=== PATIENT | female | born 1990 | race Caucasian/White ===

== ENCOUNTER 2025-07-03 20:30 | Emergency (ER) | payer OTHER, SELFPAY ==
[2025-07-03 20:33] VITALS: BP 161/106; PULSE 130; RESP 18; TEMP 36.8; O2SAT 100
[2025-07-03 21:04] LABS: Hematocrit 34.4 % (37.0-47.0); Hemoglobin 9.8 g/dL (12.0-15.0); Immature Granulocyte Percent A 0.5 % (0-0.5); Lymphocytes Absolute Auto 3.15 K/mm3 (0.9-3.2); Mean Corpuscular HGB Conc 28.5 g/dl (32-36); Mean Corpuscular Hemoglobin 20.3 pg (26-34); Mean Corpuscular Volume 71.4 fl (80-100); Nucleated Red Blood Cells Absolute Auto 0.000 K/mm3 (0.0-0.012); Nucleated Red Blood Cells Perc 0.0 % (0.0-0.2); Platelet Count Result 705 k/mm3 (150-375); Red Blood Count 4.82 M/mm3 (4.2-5.4); White Blood Count 19.4 K/mm3 (4.5-10.0)
--- NOTE | 2025-07-03 21:10 | ED_ITS ---
HPI - Female Genitourinary General Chief complaint: Vaginal Bleeding Stated complaint: excessive vaginal bleeding x 6 days Time Seen by Provider: 07/03/25 20:48 Source: patient and family Mode of arrival: ambulatory Limitations: no limitations History of Present Illness HPI Narrative: This is a 34-year-old female with history of iron deficiency anemia who presents the ED for vaginal bleeding. Patient states that she was recently started on a new control earlier this month for irregular periods and for the last 6 days, she has been having a period that is heavier than normal. She has been soaking through a tampon an hour every day. She has had intermittent lightheadedness. Denies chest pain, shortness of breath. Significant other at bedside states that she appears to have her regular complexion. She has an appointment on with the agricultural and forestry supervisor. Related Data Home Medications ?Medication ?Instructions ?Recorded ?Confirmed ?Last Taken ?Type albuterol 90 mcg/actuation aerosol mcg inhalation 03/1106/13/25 Unknown History inhaler cetirizine 10 mg tablet (Zyrtec) 10 mg PO DAILY PRN 06/13/25 Unknown History Allergies Allergy/AdvReac Type Severity Reaction Status Date / Time clindamycin Allergy Intermediate Hives Verified 07/03/25 20:35 Review of Systems 2 Review of Systems: Gen.: Denies fevers or chills Eyes: Denies eye pain or visual change ENT: Denies congestion Respiratory: Denies shortness of breath or cough CV: Denies chest pain or palpitations GI: Denies abdominal pain nausea, emesis or diarrhea as per HPI Musculoskeletal: Denies back pain or muscle pain Neuro: Denies numbness, tingling, weakness or focal weakness Skin: Denies rash Except as documented, all other systems reviewed and negative [facility] Past Medical History Medical History Ocular migraine Allergies Asthma Family History Family History Father Hypertension Acute myocardial infarction CAD with CABG Heart disease Obstructive sleep apnea Social History Social History Smoking status: Never smoker Second hand tobacco smoke exposure: Yes Alcohol intake: current Alcohol use details: occasionally; 5 drinks/months Substance use: never Do You Feel Safe in your Home?: No Lack of Transportation: No Lack of Food: Never True Current Housing: I Have Housing Concerned About Future Housing: No Difficulty Paying Gas/Electric Bills: No Difficulty Paying for Meds: No Currently Unemployed: No Difficulty w/ Childcare or Family Care: Decline to Answer Occupation/Education: occupation Agree to blood products: No Exam 2 Narrative: APPEARANCE: Mildly anxious, nontoxic, resting in bed EYES: EOMI HEENT: Normocephalic, atraumatic, OMM RESPIRATORY: No respiratory distress Clear to auscultation bilaterally with no rhonchi wheezing or rales. CARDIOVASCULAR: Tachycardic with regular rhythm without murmurs rubs or gallops. ABDOMINAL: Soft, nontender, nondistended, no rebound or guarding MUSCULOSKELETAl: Moves all extremities. No clubbing, cyanosis or edema. NEURO: Awake and alert. Following commands, speech normal, no focal deficits SKIN:: Warm, dry. No rashes lesions or abrasions PSYCHIATRIC: Mildly anxious Course Vital Signs Vital signs: Vital Signs Temperature 98.2 F 07/03/25 20:33 Pulse Rate 130 H 07/03/25 20:33 Respiratory Rate 18 07/03/25 20:33 Blood Pressure 161/106 H 07/03/25 20:33 Pulse Oximetry 100 07/03/25 20:33 Oxygen Delivery Room Air 07/03/25 20:33 Temperature 98.2 F 07/03/25 20:33 Pulse Rate 130 H 07/03/25 20:33 Respiratory Rate 18 07/03/25 20:33 Blood Pressure 161/106 H 07/03/25 20:33 Pulse Oximetry 100 07/03/25 20:33 Oxygen Delivery Room Air 07/03/25 20:33 MDM - Female Genitourinary MDM Narrative Medical decision making narrative: 34-year-old female presenting to the ED for vaginal bleeding. Initial evaluation the patient was mildly anxious, afebrile, hemodynamically stable. Her lungs clear. Abdomen soft nontender. CBC revealed a leukocytosis of 19.4 and thrombocytosis of 705. Hemoglobin is 9.8 which was baseline compared to previous a month ago. UA showed significant blood and was positive for yeast. Suspect that patient has had dysmenorrhea related to her new control. She may have a yeast infection as well so she was given a single dose of fluconazole here in the ED. She was advised follow-up with the agricultural and forestry supervisor on as scheduled. Patient and family were agreeable to this plan. Given strict return precautions. Differential Diagnosis Differential diagnosis: Likely urinary tract infection, dysmenorrhea and other (Anemia) Medical Records Attestation: I reviewed the patient's medical records. Lab Data Attestation: I reviewed the patient's lab results. 07/03/25 20:58 07/03/25 20:58 Labs: Lab Results 07/03/25 07/03/25 07/03/25 Range/Units 20:58 20:58 21:54 WBC 19.4 H (4.5-10.0) K/mm3 RBC 4.82 (4.2-5.4) M/mm3 Hgb 9.8 L (12.0-15.0) g/dL Hct 34.4 L (37.0-47.0) % MCV 71.4 L (80-100) fl MCH 20.3 L (26-34) pg MCHC 28.5 L (32-36) g/dl RDW 27.2 H (11.5-14.5) % Plt Count 705 H (150-375) k/mm3 MPV 8.6 (7.4-10.4) fl Immature Gran % (Auto) 0.5 (0-0.5) % Neut % (Auto) 77.9 H (45.5-73.1) % Lymph % (Auto) 16.2 L (18.3-44.2) % [place] % (Auto) 4.6 (2.6-8.5) % Eos % (Auto) 0.5 (0-4.4) % Baso % (Auto) 0.3 (0.2-1.2) % Lymph # (Auto) 3.15 (0.9-3.2) K/mm3 [place]ckenzie # (Auto) 0.9 H (0.1-0.6) K/mm3 Eos # (Auto) 0.1 (0-0.3) K/mm3 Baso # (Auto) 0.1 (0.0-0.1) K/mm3 Abs Immat Gran (auto) 0.10 H (0.00-0.031) K/mm3 Absolute Neuts (auto) 15.1 H (1.3-6.7) K/mm3 Absolute Nucleated RBC 0.000 (0.0-0.012) K/mm3 Band Neutrophils % Not Reportable Nucleated RBC % 0.0 (0.0-0.2) % Platelet Estimate Increased (Adequate) Polychromasia Occasional Anisocytosis 1+ Macrocytosis 1+ (NORMAL) Ovalocytes 1+ Schistocytes None seen PT 13.5 (11.1-14.7) Seconds INR 1.0 APTT 24.7 (22.3-36.8) Seconds D-Dimer 0.44 Cancelled (<0.48) ug/mL Sodium Pending Potassium Pending Chloride Pending Carbon Dioxide Pending Anion Gap Pending BUN Pending Creatinine Pending Estim Creat Clear Calc Pending Estimated GFR Pending Glucose Pending Calcium Pending Total Bilirubin Pending AST Pending ALT Pending Alkaline Phosphatase Pending Total Protein Pending Albumin Pending Urine Color Dark radha (Yellow) Urine Appearance Turbid H (Clear) Urine pH 5.0 (5.0-9.0) Ur Specific [place] 1.026 (1.001-1.035) Urine Protein 2+ H (Negative) mg/dL Urine Glucose (UA) Negative (Negative) mg/dL Urine Ketones Trace H (Negative) mg/dL Ur Blood (Man) 3+ H (Negative) Urine Nitrate Negative (Negative) Urine Bilirubin 1+ H (Negative) Urine Urobilinogen 1.0 (<2.0) mg/dL Add Ur Microanalysis Reviewed Leukocyte Esterase Rfl 1+ H (Negative) JORGE/UL Urine RBC >100 H (0-2) /hpf Urine WBC 6-10 H (0-3) /hpf Ur Squamous Epith Cells None seen (Few) /hpf Calcium Oxalate Crystal Present (None) /hpf Urine Bacteria Rare /hpf Urine Casts 11-20 Urine Yeast (Budding) Present H (None) /hpf Urine Test Negative Blood Type A Positive Antibody Screen Negative Discharge Plan Discharge Clinical Impression: Dysmenorrhea, Vaginal yeast infection Patient Disposition: Home Condition: Stable Instructions: Antibiotic Form Additional Instructions: Follow-up with the agricultural and forestry supervisor on as scheduled. Continue trach the number tampons your using. Take 2 iron supplements twice daily until discussion with your agricultural and forestry supervisor. Return to the ED for any new or worsening symptoms. Patient Language: Albanian Prescriptions: No Action cetirizine [Zyrtec] 10 mg tablet 10 mg PO DAILY PRN albuterol 90 mcg/actuation aerosol inhalation epinephrine [EpiPen 2-Joseph] 0.3 mg/0.3 mL auto-injector 0.3 mg IM .COMPLEX PRN (Reason: anaphylaxis) Qty: 2 0RF Rx Instructions: 0.3 mg intramuscularly PRN; as a single dose; may repeat once norethindrone-e.estradiol-iron 1 mg-20 mcg (21)/75 mg (7) tablet 1 tablet PO DAILY Qty: 84 1RF Follow-up/Referrals: Kenna Yanez DO [Primary Care Provider, Family Practice]
[2025-07-03 21:21] LABS: INR 1.0; Partial Thromboplastin Time 24.7 Seconds (22.3-36.8); Prothrombin Time 13.5 Seconds (11.1-14.7)
[2025-07-03 21:23] LABS: Anisocytosis 1+; Ovalocytes 1+; Polychromasia Occasional; Schistocytes None Seen
[2025-07-03 21:24] LABS: Macrocytosis 1+ (NORMAL)
[2025-07-03 22:04] LABS: Pregnancy On Board Control Positive
[2025-07-03 22:23] LABS: Add Urine Microscopic? YES; Appearance Urine Turbid (Clear); Budding Yeast Urine Present /hpf; Glucose Urine UA Negative (Negative); Leukocyte Esterase Ur 1+ LEU/UL (Negative); Need Manual Microscopic Reviewed; Nitrate Urine Negative (Negative); Specific Grav Ur 1.026 (1.001-1.035)
[2025-07-03] MEDS: FLUCONAZOLE 150 MG TABLET PO (23:23)
== END 2025-07-03 23:24 | disposition home or self-care (01) ==
PROVIDERS: Student in an Organized Health Care Education/Training Program; Emergency Provider Student in an Organized Health Care Education/Training Program; PCP Family Medicine
DX: N94.6 Dysmenorrhea, unspecified (principal); B37.31 Acute candidiasis of vulva and vagina
CPT/HCPCS: 36415; 81001; 81025; 85025; 85380; 85610; 85730; 86850; 86900; 86901; 87086; 96360; 99283; A9270

== ENCOUNTER 2025-07-05 09:39 | Emergency (ER) | payer OTHER, SELFPAY ==
[2025-07-05] VITALS (17 sets, daily range): BP systolic 130–201; BP diastolic 90–122; PULSE 86–116; RESP 12–24; TEMP 36.9; O2SAT 96–100
--- NOTE | ~2025-07-05 | XR_ITS ---
EXAMINATION: XR chest 2V, 07/05/2025 10:20 CDT HISTORY: hypertension work up COMPARISON: No comparisons available. Technique: 2 views obtained. Findings: The lungs are clear, no effusion. No pneumothorax. Heart is normal size. Mediastinal and hilar contours are within normal limits. Bony thorax no acute abnormality. Impression: No acute cardiopulmonary abnormality. Reviewed, dictated and finalized at location A. Impression: No acute cardiopulmonary abnormality.
--- NOTE | 2025-07-05 10:13 | ECG_ITS ---
Test Date: 2025-07-05 10:43:32 Measurements Intervals Lester Rate: 107 P: 25 UT: 153 QRS: 22 QRSD: 91 T: 16 QT: 308 QTc: 411 Interpretive Statements SINUS TACHYCARDIA ABNORMAL RHYTHM ECG No previous ECG available for comparison Electronically Signed On 07-05-2025 16:32:08 CDT by Ruel Levine M.D.
--- NOTE | 2025-07-05 10:15 | ED.GENADULT ---
HPI - General Adult General Chief complaint: Recheck/Abnormal Lab/Rx Stated complaint: ELEVATED BP Time Seen by Provider: 07/05/25 09:47 History of Present Illness HPI narrative: Kylie Finley is a 34-year-old female who presents today with elevated blood pressure. She explains that she was at her OBGYN office for heavy vaginal bleeding that she has been having for 8 days no change in her control to try to get that controlled into the pelvic exam however her blood pressure was noted to be quite elevated there they were concerned along her to get checked out here. She states that blood pressure has been elevated every time it has been checked for a long time, she relates this to being nervous and anxious she he has at the doctor's office or in the hospital. She is essentially asymptomatic with this blood pressure she denies chest pain denies palpitations denies headache denies vision changes denies numbness denies tingling denies shortness of breath denies changes to urine output. Related Data Home Medications ?Medication ?Instructions ?Recorded ?Confirmed ?Last Taken ?Type ferrous sulfate 27 mg iron tablet 27 mg PO BID 07/05/25 07/05/25 Unknown History magnesium 200 mg tablet 200 mg PO DAILY 07/05/25 07/05/25 Unknown History Allergies Allergy/AdvReac Type Severity Reaction Status Date / Time clindamycin Allergy Intermediate Hives Verified 07/05/25 09:40 Review of Systems Review of Systems: All systems reviewed & are unremarkable except as noted in HPI and below PMFSH Past Medical History Medical History Ocular migraine Allergies Asthma Family History Family History Father Hypertension Acute myocardial infarction CAD with CABG Heart disease Obstructive sleep apnea Social History Social History Smoking status: Never smoker Second hand tobacco smoke exposure: Yes Alcohol intake: current Alcohol use details: occasionally; 5 drinks/months Substance use: never Do You Feel Safe in your Home?: No Lack of Transportation: No Lack of Food: Never True Current Housing: I Have Housing Concerned About Future Housing: No Difficulty Paying Gas/Electric Bills: No Difficulty Paying for Meds: No Currently Unemployed: No Difficulty w/ Childcare or Family Care: Decline to Answer Occupation/Education: occupation Agree to blood products: No Exam Narrative: GENERAL: Well-appearing, well-nourished, and in no acute distress. HEAD: Normocephalic, atraumatic. EYES: PERRLA and EOMI. ENT: Nares clear, no rhinorrhea or epistaxis. Mucous membranes moist. Oropharynx without tonsillar hypertrophy exudate or other lesions. NECK: Supple. No adenopathy or masses. No carotid bruits or JVD CHEST: Clear to auscultation. No respiratory distress. No wheezes rales or rhonchi HEART: Regular rate and rhythm. No murmur heard. Normal peripheral pulses.. EXTREMITIES: Normal range of motion. No edema. SKIN: Warm, dry, no rash. NEURO: No focal deficits. Alert and oriented x3. PSYCH: Normal mood and affect. Course Vital Signs Vital signs: Vital Signs Temperature 36.9 C 07/05/25 09:47 Pulse Rate 108 H 07/05/25 09:47 Respiratory Rate 18 07/05/25 09:47 Blood Pressure 166/114 H 07/05/25 09:47 Pulse Oximetry 99 07/05/25 09:47 Oxygen Delivery Room Air 07/05/25 09:47 Temperature 36.9 C 07/05/25 09:47 Pulse Rate 116 H 07/05/25 15:21 Respiratory Rate 18 07/05/25 15:21 Blood Pressure 179/96 H 07/05/25 15:21 Pulse Oximetry 100 07/05/25 15:21 Oxygen Delivery Room Air 07/05/25 09:47 Medical Decision Making MDM Narrative Medical decision making narrative: 34-year-old female who was sent from her OBGYN for an elevated blood pressure reading at her visit. She states that her blood pressure does typically run high every time she goes to the doctor because she is super anxious. Patient with asymptomatic hypertension. No signs or symptoms of end organ dysfunction; no chest pain or shortness of breath, neurological deficits, severe headaches, visual disturbance, oliguria, or symptoms of dissection/AAA). Long-term risks of hypertension, especially uncontrolled, were discussed including increased risks of kidney disease, vascular disease, stroke and heart disease. We discussed lifestyle modifications including diet and exercise. Patient has been dealing with heavy vaginal bleeding for the past 8 or 9 days and has a history of anemia and went for OBGYN who is switching her medication over to stop the bleeding. With her pressure being elevated I did decide to check blood work, EKG, including troponin, chest x-ray CBC shows mild leukocytosis, hemoglobin is 8.7 her last one was around 9, CMP SODIUM 130 A GLUCOSE 1120 NORMAL KIDNEY FUNCTION OTHERWISE UNREMARKABLE troponin is negative TSH is within normal UA has blood which given the vaginal bleeding pads for which raise leuks trace ketones I will start patient on hydrochlorothiazide here and provide script for short course, When the nurse went to get his medication patient and her and her visitor had concerns and I went back and discussed with them, they felt that maybe she needed to be started on something for her her heart rate it has been elevated since being here. When I was out of the room her heart rate improves on monitor to high 80s low 90s when I go in the room her heart rate goes up to 105-110 Patient confirms a she has been very anxious and she feels more anxious since being here and that very well could be the cause of her increased heart rate and blood pressure. Also in the setting of her vaginal bleeding that she has been dealing with and that getting cared for - her elevated heart rate could be related to that too With b/p being continued elevated she was given a one time dose of IV hydralazine 10 mg. Her b/p did improve to 179/96 from 200 systolic. I consulted with pt's PCP Dr. Yanez who agrees with plan to start her on hydrochlorothiazide and she will follow up with her in office. Dr. Yanez also agrees that she does have anxiety and can get worked up easily I discussed with pt that I talked with her PCP and that she agrees to start the hydrochlorothiazide and she will follow up with her out pt. Patient feels comfortable with this plan, and she feels comfortable going home at this time with the negative work up. Patient given return precautions Medical Records Medical records reviewed: Yes I reviewed the external patient's medical records. Vital Signs Vital Signs: Vital Signs Temperature 36.9 C 07/05/25 09:47 Pulse Rate 108 H 07/05/25 09:47 Respiratory Rate 18 07/05/25 09:47 Blood Pressure 166/114 H 07/05/25 09:47 Pulse Oximetry 99 07/05/25 09:47 Oxygen Delivery Room Air 07/05/25 09:47 Temperature 36.9 C 07/05/25 09:47 Pulse Rate 116 H 07/05/25 15:21 Respiratory Rate 18 07/05/25 15:21 Blood Pressure 179/96 H 07/05/25 15:21 Pulse Oximetry 100 07/05/25 15:21 Oxygen Delivery Room Air 07/05/25 09:47 Vitals reivewed Lab Data Lab results reviewed: Yes I reviewed the patient's lab results. 07/05/25 10:53 07/05/25 10:53 Labs: Lab Results 07/05/25 07/05/25 Range/Units 10:53 11:47 WBC 14.7 H (4.5-10.0) K/mm3 RBC 4.21 (4.2-5.4) M/mm3 Hgb 8.7 L (12.0-15.0) g/dL Hct 31.1 L (37.0-47.0) % MCV 73.9 L (80-100) fl MCH 20.7 L (26-34) pg MCHC 28.0 L (32-36) g/dl RDW 27.9 H (11.5-14.5) % Plt Count 534 H (150-375) k/mm3 MPV 8.6 (7.4-10.4) fl Immature Gran % (Auto) 0.5 (0-0.5) % Neut % (Auto) 83.4 H (45.5-73.1) % Lymph % (Auto) 12.6 L (18.3-44.2) % [place] % (Auto) 3.1 (2.6-8.5) % Eos % (Auto) 0.1 (0-4.4) % Baso % (Auto) 0.3 (0.2-1.2) % Lymph # (Auto) 1.85 (0.9-3.2) K/mm3 [place] # (Auto) 0.5 (0.1-0.6) K/mm3 Eos # (Auto) 0.0 (0-0.3) K/mm3 Baso # (Auto) 0.0 (0.0-0.1) K/mm3 Abs Immat Gran (auto) 0.07 H (0.00-0.031) K/mm3 Absolute Neuts (auto) 12.3 H (1.3-6.7) K/mm3 Absolute Nucleated RBC 0.000 (0.0-0.012) K/mm3 Band Neutrophils % Not Reportable Nucleated RBC % 0.0 (0.0-0.2) % Platelet Estimate Increased (Adequate) Polychromasia Occasional Hypochromasia 1+ Anisocytosis 1+ Target Cells Occasional Ovalocytes 1+ Schistocytes None seen Sodium 135 L (137-145) mmol/L Potassium 3.8 (3.4-5.0) mmol/L Chloride 102 (98-107) mmol/L Carbon Dioxide 24 (22-30) mmol/L Anion Gap 9 (4-12) mmol/L BUN 12 (7-17) mg/dL Creatinine 0.79 (0.7-1.0) mg/dL Estim Creat Clear Calc 106 ml/min Estimated GFR > 60 (59 - ) Glucose 112 H (65-110) mg/dL Calcium 8.8 (8.4-10.2) mg/dL Total Bilirubin 0.4 (0.2-1.3) mg/dL AST 23 (14-36) U/L ALT 21 (6-35) U/L Alkaline Phosphatase 73 (38-126) U/L Troponin I < 0.012 (0.000-0.034) ng/mL Total Protein 8.0 (6.3-8.2) g/dL Albumin 4.2 (3.5-5.1) g/dL TSH 1.700 (0.465-4.680) uIU/mL Urine Color Light red H (Yellow) Urine Appearance Cloudy H (Clear) Urine pH 6.0 (5.0-9.0) Ur Specific [place] 1.016 (1.001-1.035) Urine Protein Trace (Negative) mg/dL Urine Glucose (UA) Negative (Negative) mg/dL Urine Ketones Trace H (Negative) mg/dL Ur Blood (Man) 3+ H (Negative) Urine Nitrate Negative (Negative) Urine Bilirubin Negative (Negative) Urine Urobilinogen 0.2 (<2.0) mg/dL Leukocyte Esterase Rfl Trace H (Negative) JORGE/UL Urine RBC >100 H (0-2) /hpf Urine WBC 0-5 (0-3) /hpf Ur Squamous Epith Cells None seen (Few) /hpf Urine Bacteria None seen /hpf Urine Casts 0-2 Imaging Data Radiologist's impression: Impressions Chest X-Ray 07/05/25 10:37 Impression: No acute cardiopulmonary abnormality. ECG Data EKG #1: ECG completion date: 07/05/25 ECG completion time: 10:45 Interpretation: Rate 107 MT 153 QRSd 91 QT 308 QTc 411 --[place]-- P 25 QRS 22 T 16 SINUS TACHYCARDIA ABNORMAL RHYTHM ECG Discharge Plan Discharge Clinical Impression: Elevated blood pressure reading Patient Disposition: Home Condition: Stable Instructions: Antibiotic Form, Hypertension (ED) Additional Instructions: Start taking your blood pressure medication once daily, try to get a b/p monitor and check once a day or every other day to keep a log for your Primary care physician. Call to schedule a follow up with your PCP tomorrow If you should develop any new or worsening symtpoms as always return to the ER. Patient Language: Indian Prescriptions: New hydrochlorothiazide 12.5 mg tablet 12.5 mg PO DAILY Qty: 30 1RF No Action magnesium 200 mg tablet 200 mg PO DAILY ferrous sulfate 27 mg iron tablet 27 mg PO BID medroxyprogesterone [Provera] 10 mg tablet 10 mg PO DAILY 10 Days Qty: 10 0RF Follow-up/Referrals: Kenna Yanez DO [Primary Care Provider, [facility]] - 1 Week Time of Disposition: 15:29
--- OUTSIDE RECORDS SUMMARY | 2025-07-05 10:28 | XMS_ITS | Encounter Summary ---
Author Organization [facility] Address [address] [place] [address] Care Team Providers Care Microbiology Teacher Name Role Phone Unavailable Primary Care Provider Unavailabl e Encounter Details Date Type Department Care Team (Late st Contact Info) Description 02/22/2002 Outpatient Historical [facility] Pediatrics [address] [place] [address] Connor Proctor MD [address] [facility] [address] [place] [address] Social History Tobacco Use Types Packs/Day Years Used Date Smoking Tobacco: Never Assessed Comments Unknown Sex and Gender Information Value Date Recorded Sex Assigned at Not on file 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
--- OUTSIDE RECORDS SUMMARY | 2025-07-05 10:28 | XMS_ITS | Encounter Summary ---
Author Organization [facility] Address [address] [place] [address] Care Team Providers Care Senior Insight Manager International Name Role Phone Unavailable Primary Care Provider Unavailabl e Encounter Details Date Type Department Care Team (Late st Contact Info) Description 02/14/2001 Outpatient Historical [facility] Pediatrics [address] [place] [address] Pedro Carias MD [address] [place] [address] Social History Tobacco Use Types Packs/Day Years Used Date Smoking Tobacco: Never Assessed Comments Unknown Sex and Gender Information Value Date Recorded Sex Assigned at Not on file 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
--- OUTSIDE RECORDS SUMMARY | 2025-07-05 10:28 | XMS_ITS | Clinical Summary ---
Author Organization [facility] Address [address] Attn: Epic Prelude ADT DAYAN BURRELL [address] Care Team Providers Care Numerical Control Operator Name Role Phone Unavailable Primary Care Provider Unavailabl e Social History Tobacco Use Types Packs/Day Years Used Date Smoking Tobacco: Never Assessed Comments Unknown Sex and Gender Information Value Date Recorded Sex Assigned at Not on file Legal Sex Female 2:40 AM HEALTH CARE / MEDICAL JOB TITLES Gender Identity Not on file Sexual Orientation Not on file Plan of Treatment Health Maintenance Due Date Last Done Comments DTAP/TDAP/TD VACCINES (1 - Tdap) 2010 HEPATITIS B VACCINES (1 of 3 - 19+ 3-dose series) 10/11 HPV/Cotest (21-29) 2012 HPV VACCINES (1 - 3-dose SCDM series) 2018 CERVICAL CANCER SCREENING 2021 HPV/Cotest (30-65) 2021 PAP SMEAR 2021 INFLUENZA VACCINE (#1) 2025
--- OUTSIDE RECORDS SUMMARY | 2025-07-05 10:28 | XMS_ITS | Encounter Summary ---
Author Organization [facility] Address [address] [place] [address] Care Team Providers Care Log Haul Operator Name Role Phone Unavailable Primary Care Provider Unavailabl e Encounter Details Date Type Department Care Team (Late st Contact Info) Description 10/21/2002 Outpatient Historical [facility] Pediatrics [address] [place] [address] Nilton Campbell MD [address] [place] [address] [address] [address] Social History Tobacco Use Types Packs/Day Years Used Date Smoking Tobacco: Never Assessed Comments Unknown Sex and Gender Information Value Date Recorded Sex Assigned at Not on file 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
--- OUTSIDE RECORDS SUMMARY | 2025-07-05 10:28 | XMS_ITS | Clinical Summary ---
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 Gender Identity Not on file Sexual Orientation Not on file Plan of Treatment Health Maintenance Due Date Last Done Comments Hepatitis C Virus (HCV) Screening 1991 TdaP Immunization 1991 Hepatitis B Immunization (1 of 3 - 19+ 3-dose series) 2010 Pap Smear 2012 Human Papillomavirus (HPV) Immunization (1 - 3-dose SCDM series) 2018 Cervical Cancer Screening (CCS) 2021 HPV/Cotest 2021 SARS-COV-2 Immunization ( season) 2024 01/17/2021 Influenza Immunization (#1) 2025 Respiratory Syncytial Virus (RSV) Immunization (Adult) (1 - 1-dose 75+ series) 2066 Meningococcal Immunization (ACWY) Aged Out No longer eligible based on patient's age to complete this topic Pneumococcal Immunization Combined Aged Out No longer eligible based on patient's age to complete this topic Rotavirus Immunization Aged Out No lo nger eligible based on patient's age to complete this topic
--- OUTSIDE RECORDS SUMMARY | 2025-07-05 10:28 | XMS_ITS | Clinical Summary ---
Author Organization [facility] Address [facility] [place] [address] Care Team Providers Care Showcase Trimmer Name Role Phone Unknown, Provider Primary Care Provider Unavaila ble Source Comments [facility],non-owned Affiliates and Associated Physician Practices is amultiple site organization consisting of ambulatory clinics and hospital sitesin [place], [place], [place] and [place]. This disclosure is being madepursuant to the Care Everywhere program and may not contain all information available regarding this patient. 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 Gender Identity Not on file Sexual Orientation Not on file Plan of Treatment Health Maintenance Due Date Last Done Comments HIV SCREENING 2006 HEPATITIS C SCREENING 10/17/2009 DTAP/TDAP/TD VACCINES (1 - Tdap) 2010 HEPATITIS B VACCINE (1 of 3 - 19+ 3-dose series) 2010 HPV VACCINE (1 - 3-dose SCDM series) 2018 DEPRESSION SCREENING 10/11/2024 COVID-19 VACCINE ( - 2023-2 5 season) 2025 INFLUENZA VACCINE (#1) 2025 ZOSTER VACCINE (1 of 2) 2041 HIB VACCINE Aged Out No longer eligi ble based on patient's age to complete this topic MENINGOCOCCAL (Group B) VACC INE SHARED DECISION-MAKING Aged Out No longer eligibl e based on patient's age to complete this topic MENINGOCOCCAL GROUPS A/C/Y/W VACCINE Aged Out No longer eligible b ased on patient's age to complete this topic PNEUMOCOCCAL VACCINE Aged Out No long er eligible based on patient's age to complete this topic Insurance [employer] Care Teams Showcase Trimmer Relationship Specialty Start Date End Date Unknown, Provider PCP - General 09/11/16
--- OUTSIDE RECORDS SUMMARY | 2025-07-05 10:28 | XMS_ITS | Encounter Summary ---
Author Organization [facility] Address [address] [place] [address] Care Team Providers Care Retail Store Clerk Name Role Phone Unavailable Primary Care Provider Unavailabl e Encounter Details Date Type Department Care Team (Late st Contact Info) Description 06/24/2002 Outpatient Historical [facility] [address] [place] [address] Pedro Carias MD [address] [place] [address] Social History Tobacco Use Types Packs/Day Years Used Date Smoking Tobacco: Never Assessed Comments Unknown Sex and Gender Information Value Date Recorded Sex Assigned at Not on file Legal Sex Female 2:40 AM RN FAMILY PRACTICE Gender Identity Not on file Sexual Orientation Not on file documented as of this encounter Plan of Treatment Not on file documented as of this encounter Visit Diagnoses Not on filedocumented in this encounter
--- OUTSIDE RECORDS SUMMARY | 2025-07-05 10:28 | XMS_ITS | Encounter Summary ---
Author Organization [facility] Address [address] [place] [address] Care Team Providers Care Director Of Education Name Role Phone Unavailable Primary Care Provider Unavailabl e Encounter Details Date Type Department Care Team (Late st Contact Info) Description 01/24/2003 Outpatient Historical [facility] [address] [place] [address] Nilton Campbell MD [address] [place] [address] [address], [place] [address] Social History Tobacco Use Types Packs/Day Years Used Date Smoking Tobacco: Never Assessed Comments Unknown Sex and Gender Information Value Date Recorded Sex Assigned at Not on file Legal Sex Female 2:40 AM CREDIT SUPPORT SPECIALIST Gender Identity Not on file Sexual Orientation Not on file documented as of this encounter Plan of Treatment Not on file documented as of this encounter Visit Diagnoses Not on filedocumented in this encounter
--- OUTSIDE RECORDS SUMMARY | 2025-07-05 10:28 | XMS_ITS | Encounter Summary ---
Author Organization [facility] Address [address] [place] [address] Care Team Providers Care History Card Clerk Name Role Phone Unavailable Primary Care Provider Unavailabl e Encounter Details Date Type Department Care Team (Late st Contact Info) Description 03/15/2002 Outpatient Historical [facility] [address] [place] [address] Connor Proctor MD [address] [facility] [address] [place] [address] Social History Tobacco Use Types Packs/Day Years Used Date Smoking Tobacco: Never Assessed Comments Unknown Sex and Gender Information Value Date Recorded Sex Assigned at Not on file Legal Sex Female 2:40 AM CONSTRUCTION STONEMASON Gender Identity Not on file Sexual Orientation Not on file documented as of this encounter Plan of Treatment Not on file documented as of this encounter Visit Diagnoses Not on filedocumented in this encounter
--- OUTSIDE RECORDS SUMMARY | 2025-07-05 10:28 | XMS_ITS | Encounter Summary ---
Author Organization [facility] Address [address] [place] [address] Care Team Providers Care Medart Operator Name Role Phone Unavailable Primary Care Provider Unavailabl e Encounter Details Date Type Department Care Team (Late st Contact Info) Description 08/19/[address] [facility] [address] [place] [address] Jan Pérez Social History Tobacco Use Types Packs/Day Years Used Date Smoking Tobacco: Never Assessed Comments Unknown Sex and Gender Information Value Date Recorded Sex Assigned at Not on file Legal Sex Female 2:40 AM DELI CUTTER SLICER Gender Identity Not on file Sexual Orientation Not on file documented as of this encounter Plan of Treatment Not on file documented as of this encounter Visit Diagnoses Not on filedocumented in this encounter
--- OUTSIDE RECORDS SUMMARY | 2025-07-05 10:28 | XMS_ITS | Encounter Summary ---
Author Organization [facility] Address 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
--- OUTSIDE RECORDS SUMMARY | 2025-07-05 10:28 | XMS_ITS | Encounter Summary ---
Author Organization [facility] Address [address] [place] [address] Care Team Providers Care Assemblies And Installations Inspector Name Role Phone Unavailable Primary Care Provider Unavailabl e Encounter Details Date Type Department Care Team (Late st Contact Info) Description 10/21/2002 Outpatient Historical [facility] [address] [place] [address] Nilton Campbell MD [address] [place] [address] [address], [place] [address] Social History Tobacco Use Types Packs/Day Years Used Date Smoking Tobacco: Never Assessed Comments Unknown Sex and Gender Information Value Date Recorded Sex Assigned at Not on file Legal Sex Female 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
--- OUTSIDE RECORDS SUMMARY | 2025-07-05 10:28 | XMS_ITS | Encounter Summary ---
Author Organization [facility] Address [address] [place] [address] Care Team Providers Care Massage Therapist Name Role Phone Unavailable Primary Care Provider Unavailabl e Encounter Details Date Type Department Care Team (Late st Contact Info) Description 05/30/2001 Outpatient Historical [facility] [address] [place] [address] Pedro Carias MD [address] [place] [address] Social History Tobacco Use Types Packs/Day Years Used Date Smoking Tobacco: Never Assessed Comments Unknown Sex and Gender Information Value Date Recorded Sex Assigned at Not on file Legal Sex Female 2:40 AM AIR SUPPORT CONTROL OFFICER Gender Identity Not on file Sexual Orientation Not on file documented as of this encounter Plan of Treatment Not on file documented as of this encounter Visit Diagnoses Not on filedocumented in this encounter
--- OUTSIDE RECORDS SUMMARY | 2025-07-05 10:28 | XMS_ITS | Encounter Summary ---
Author Organization [facility] Address [address] [place] [address] Care Team Providers Care Dairy Chemist Name Role Phone Unavailable Primary Care Provider Unavailabl e Encounter Details Date Type Department Care Team (Late st Contact Info) Description 11/29/2000 Outpatient Historical [facility] [address] [place] [address] Pedro Carias MD [address] [place] [address] Social History Tobacco Use Types Packs/Day Years Used Date Smoking Tobacco: Never Assessed Comments Unknown Sex and Gender Information Value Date Recorded Sex Assigned at Not on file Legal Sex Female 2:40 AM BRANCH SERVICE ASSOCIATE Gender Identity Not on file Sexual Orientation Not on file documented as of this encounter Plan of Treatment Not on file documented as of this encounter Visit Diagnoses Not on filedocumented in this encounter
--- OUTSIDE RECORDS SUMMARY | 2025-07-05 10:28 | XMS_ITS | Encounter Summary ---
Author Organization [facility] Address [address] [place] [address] Care Team Providers Care Electronic Prepress System Operator Name Role Phone Unavailable Primary Care Provider Unavailabl e Encounter Details Date Type Department Care Team (Late st Contact Info) Description 11/11/1999 Outpatient Historical [facility] [address] [place] [address] Pedro Carias MD [address] [place] [address] Social History Tobacco Use Types Packs/Day Years Used Date Smoking Tobacco: Never Assessed Comments Unknown Sex and Gender Information Value Date Recorded Sex Assigned at Not on file Legal Sex Female 2:40 AM DISPLAY DECORATOR Gender Identity Not on file Sexual Orientation Not on file documented as of this encounter Plan of Treatment Not on file documented as of this encounter Visit Diagnoses Not on filedocumented in this encounter
--- OUTSIDE RECORDS SUMMARY | 2025-07-05 10:28 | XMS_ITS | Encounter Summary ---
Author Organization [facility] Address [address] [place] [address] Care Team Providers Care Insulation Technician Name Role Phone Unavailable Primary Care Provider Unavailabl e Encounter Details Date Type Department Care Team (Late st Contact Info) Description 11/23/2001 Outpatient Historical [facility] [address] [place] [address] Connor Proctor MD [address] [facility] [address] [place] [address] Social History Tobacco Use Types Packs/Day Years Used Date Smoking Tobacco: Never Assessed Comments Unknown Sex and Gender Information Value Date Recorded Sex Assigned at Not on file Legal Sex Female 2:40 AM OSTOMY NURSE Gender Identity Not on file Sexual Orientation Not on file documented as of this encounter Plan of Treatment Not on file documented as of this encounter Visit Diagnoses Not on filedocumented in this encounter
--- OUTSIDE RECORDS SUMMARY | 2025-07-05 10:28 | XMS_ITS | Encounter Summary ---
Author Organization [facility] Address [address] [place] [address] Care Team Providers Care Stogie Packer Name Role Phone Unavailable Primary Care Provider Unavailabl e Encounter Details Date Type Department Care Team (Late st Contact Info) Description 05/02/2002 Outpatient Historical [facility] [address] [place] [address] Pedro Carias MD [address] [place] [address] Social History Tobacco Use Types Packs/Day Years Used Date Smoking Tobacco: Never Assessed Comments Unknown Sex and Gender Information Value Date Recorded Sex Assigned at Not on file Legal Sex Female 2:40 AM TASSEL CLIPPER Gender Identity Not on file Sexual Orientation Not on file documented as of this encounter Plan of Treatment Not on file documented as of this encounter Visit Diagnoses Not on filedocumented in this encounter
--- OUTSIDE RECORDS SUMMARY | 2025-07-05 10:28 | XMS_ITS | Encounter Summary ---
Author Organization [facility] Address [address] [place] [address] Care Team Providers Care Resp Ther Name Role Phone Unavailable Primary Care Provider Unavailabl e Encounter Details Date Type Department Care Team (Late st Contact Info) Description 05/16/2003 Outpatient Historical [facility] [address] [place] [address] Nilton Campbell MD [address] [place] [address], [place] [address] Social History Tobacco Use Types Packs/Day Years Used Date Smoking Tobacco: Never Assessed Comments Unknown Sex and Gender Information Value Date Recorded Sex Assigned at Not on file Legal Sex Female 2:40 AM MAINFRAME SOFTWARE DEVELOPER Gender Identity Not on file Sexual Orientation Not on file documented as of this encounter Plan of Treatment Not on file documented as of this encounter Visit Diagnoses Not on filedocumented in this encounter
--- OUTSIDE RECORDS SUMMARY | 2025-07-05 10:28 | XMS_ITS | Clinical Summary ---
Author Organization [facility] [address] [facility] Address [address] [place] [address] Care Team Providers Care Rotary Soil Stabilizer Operator Name Role Phone Gaby Jaime MD Primary Care Provider Allergies Active Allergy Reactions Criticality Noted Date Comments Clindamycin Hives Medium 01/26/2025 Medications famotidine (PEPCID) 20 mg tablet Take 1 tablet (20 mg total) by mouth 2 (two) times a day for 7 days 14 tablet 5 Active albuterol HFA (PROVENTIL HFA,VENTOLIN HFA,PROAIR HFA) 90 mcg/actuation inhaler Inhale 2 puffs every 6 (six) hours as needed for wheezing or shortness of breath 1 each 5 Active fluticasone propionate (FLONASE) 50 mcg/actuation nasal spray Administer 2 sprays into each nostril daily 1 each 5 Active cetirizine (ZyrTEC) 10 mg tablet Take 1 tablet (10 mg total) by mouth daily 30 tablet 5 Active amoxicillin-cla vulanate (AUGMENTIN) 875-125 mg per tablet Take 1 tablet by mouth 2 (two) times a day 20 tablet 5 Active Active Problems Problem Noted Date Diagnosed Date Syncope and collapse 02/24/2014 Overview (01/13/2017): Syncope and collapse Encounters Date Type Department Care Team Description 04/12/2025 9:40 AM CDT E-Visit [facility] Virtual Care [address] [place] [address] Rhoda Duke NP Your Medications 04/12/2025 Patient Self-Triage [facility] [address] [place] [address] Mychart, Generic Provider from Last 3 Months Social History Tobacco Use Types Packs/Day Years Used Date Smoking Tobacco: Never Assessed Alcohol Use Standard Drinks/Week Comments Yes 0 (1 standard drink = 0.6 oz pur e alcohol) Comments Unknown Sex and Gender Information Value Date Recorded Sex Assigned at Not on file Legal Sex Female 2:23 AM GLOST KILN PLACER Gender Identity Not on file Sexual Orientation Not on file Obstetrics History Last Filed Vital Signs Vital Sign Reading Time Taken Comments Blood Pressure 130/88 01/26/2025 6:06 PM CDT Pulse 119 01/26/2025 6:06 PM CDT Temperature 36.7 C (98.1 F) 01/26/2025 6:06 PM CDT Respiratory Rate 18 01/26/2025 6:06 PM CDT Oxygen Saturation 99% 01/26/2025 6:06 PM CDT Inhaled Oxygen Concentration - - Weight 104.3 kg (230 lb) 01/26/2025 6:06 PM CDT Height 167.6 cm (5' 6) 01/26/2025 6:06 PM CDT Body Mass Index 37.12 01/26/2025 6:06 PM CDT Plan of Treatment Health Maintenance Due Date Last Done Comments Cervical Cancer Screening 1991 Depression Screening 1991 Hepatitis C Screening 1991 DTaP/Tdap/Td Vaccine (1 - Tdap) 2002 Varicella Vaccines (1 of 2 - 13+ 2-dose series) 2004 Hepatitis B Screening 2009 Regular Well Visit/Exam 18-64 2009 HPV Vaccines (1 - 3-dose SCD M series) 2018 Covid-19 Vaccine (2 - 2024-2 6 season) 2025 01/17/2021 Influenza Vaccine (#1) 2025 Pneumococcal vaccine <65 Aged Out No longer eligible based on patient's age to complete this topic Insurance [facility] CHOICE PLUS Care Teams Rotary Soil Stabilizer Operator Relationship Specialty Start Date End Date Gaby Jaime MD PCP - General 02/18/12
--- OUTSIDE RECORDS SUMMARY | 2025-07-05 10:28 | XMS_ITS | Encounter Summary ---
Author Organization [facility] Address [address] [place] [address] Care Team Providers Care Kapok And Cotton Machine Operator Name Role Phone Unavailable Primary Care Provider Unavailabl e Encounter Details Date Type Department Care Team (Late st Contact Info) Description 11/05/1998 Outpatient Historical [facility] [address] [place] [address] Pedro Carias MD [address] [place] [address] Social History Tobacco Use Types Packs/Day Years Used Date Smoking Tobacco: Never Assessed Comments Unknown Sex and Gender Information Value Date Recorded Sex Assigned at Not on file Legal Sex Female 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
[2025-07-05 11:00] LABS: Hematocrit 31.1 % (37.0-47.0); Hemoglobin 8.7 g/dL (12.0-15.0); Immature Granulocyte Percent A 0.5 % (0-0.5); Lymphocytes Absolute Auto 1.85 K/mm3 (0.9-3.2); Mean Corpuscular HGB Conc 28.0 g/dl (32-36); Mean Corpuscular Hemoglobin 20.7 pg (26-34); Mean Corpuscular Volume 73.9 fl (80-100); Nucleated Red Blood Cells Absolute Auto 0.000 K/mm3 (0.0-0.012); Nucleated Red Blood Cells Perc 0.0 % (0.0-0.2); Platelet Count Result 534 k/mm3 (150-375); Red Blood Count 4.21 M/mm3 (4.2-5.4); White Blood Count 14.7 K/mm3 (4.5-10.0)
--- OUTSIDE RECORDS SUMMARY | 2025-07-05 11:06 | XMS_ITS | Clinical Summary ---
Author Organization [facility] Address [address] [facility] Attn: Epic Prelude ADT DAYAN BURRELL [address] Care Team Providers Care Planner Chief Name Role Phone Unavailable Primary Care Provider Unavailabl e Social History Tobacco Use Types Packs/Day Years Used Date Smoking Tobacco: Never Assessed Comments Unknown Sex and Gender Information Value Date Recorded Sex Assigned at Not on file Legal Sex Female 2:40 AM TOOTH GRINDER Gender Identity Not on file Sexual Orientation [...]
--- OUTSIDE RECORDS SUMMARY | 2025-07-05 11:06 | XMS_ITS | Clinical Summary ---
Author Organization [facility] Care Team Providers Care Electrical System Specialist Name Role Phone Unavailable Primary Care Provider Unavailabl e Social History Tobacco Use Types Packs/Day Years Used Date Smoking Tobacco: Never Assessed Comments Unknown Sex and Gender Information Value Date Recorded Sex Assigned at Not on file Legal Sex Female 10:33 PM REGISTRY NURSE Gender Identity Not on file Sexual [...]
--- OUTSIDE RECORDS SUMMARY | 2025-07-05 11:06 | XMS_ITS | Clinical Summary ---
Author Organization [facility] [address] [facility] Address [address] [place] [address] Care Team Providers Care Threader Name Role Phone Gaby Jaime MD Primary [...] Team Description 04/12/2025 9:40 AM CDT E-Visit [facility] Medical Group Virtual Care [address] [place] [address] Rhoda Duke NP Your Medications 04/12/2025 Patient Self-Triage [facility] [address] [place] [address] Mychart, Generic Provider from Last 3 Months Social History Tobacco Use Types Packs/Day Years Used Date Smoking Tobacco: Never Assessed Alcohol Use Standard Drinks/Week Comments Yes 0 (1 standard drink = 0.6 oz pur e alcohol) Comments Unknown Sex and Gender Information Value Date Recorded Sex Assigned at Not on file Legal Sex Female 2:23 AM AIR TRANSPORT PROFESSIONALS Gender Identity Not on file Sexual Orientation [...] patient's age to complete this topic Insurance [facility] CHOICE PLUS Care Teams Threader Relationship Specialty Start Date End Date Gaby Jaime MD PCP - General 02/18/12
--- OUTSIDE RECORDS SUMMARY | 2025-07-05 11:07 | XMS_ITS | Encounter Summary ---
Author Organization [facility] Address [address] [place] [address] Care Team Providers Care Sports Physician Name Role Phone Unavailable Primary Care Provider Unavailabl e Encounter Details Date Type Department Care Team (Late st Contact Info) Description 05/16/2003 Outpatient Historical [facility]s [address] [place] [address] Nilton Campbell MD [address] [place] [address] [address], [place] [address] Social History Tobacco Use Types Packs/Day Years Used Date Smoking Tobacco: Never Assessed Comments Unknown Sex and Gender Information Value Date Recorded Sex Assigned at Not on file Legal Sex Female 2:40 AM PET GROOMER Gender Identity Not on file Sexual Orientation Not on file documented as of this encounter Plan of Treatment Not on file documented as of this encounter Visit Diagnoses Not on filedocumented in this encounter
--- OUTSIDE RECORDS SUMMARY | 2025-07-05 11:07 | XMS_ITS | Encounter Summary ---
Author Organization [facility] Address [address] [place] [address] Care Team Providers Care Freezer Laboratory Technician Name Role Phone Unavailable Primary Care Provider Unavailabl e Encounter Details Date Type Department Care Team (Late st Contact Info) Description 02/22/2002 Outpatient Historical [facility] Pediatrics [address] [place] [address] Connor Proctor MD [address] [facility] [address] [place] [address] Social History Tobacco Use Types Packs/Day Years Used Date Smoking Tobacco: Never Assessed Comments Unknown Sex and Gender Information Value Date Recorded Sex Assigned at Not on file Legal Sex Female 2:40 AM DAY CARE PROVIDER Gender Identity Not on file Sexual Orientation Not on file documented as of this encounter Plan of Treatment Not on file documented as of this encounter Visit Diagnoses Not on filedocumented in this encounter
--- OUTSIDE RECORDS SUMMARY | 2025-07-05 11:07 | XMS_ITS | Encounter Summary ---
Author Organization [facility] Address [address] [place] [address] Care Team Providers Care Animal Science Instructor Name Role Phone Unavailable Primary Care Provider Unavailabl e Encounter Details Date Type Department Care Team (Late st Contact Info) Description 05/02/2002 Outpatient Historical [facility] [address] [place] [address] Pedro Carias MD [address] [place] [address] Social History Tobacco Use Types Packs/Day Years Used Date Smoking Tobacco: Never Assessed Comments Unknown Sex and Gender Information Value Date Recorded Sex Assigned at Not on file Legal Sex Female 2:40 AM TYING MACHINE OPERATOR Gender Identity Not on file Sexual Orientation Not on file documented as of this encounter Plan of Treatment Not on file documented as of this encounter Visit Diagnoses Not on filedocumented in this encounter
--- OUTSIDE RECORDS SUMMARY | 2025-07-05 11:07 | XMS_ITS | Clinical Summary ---
Author Organization [facility] Address [facility] [place] [address] Care Team Providers Care Adzing And Boring Machine Operator Name Role Phone Unknown, Provider Primary Care Provider Unavaila ble Source Comments [facility],non-owned Affiliates and Associated Physician Practices is amultiple site organization consisting of ambulatory clinics and hospital sitesin [place], [place], [place] and [place]. This disclosure is being madepursuant to the Care Everywhere program and may not contain all information available regarding this patient. Last updated 18.[facility] Immunizations Immunization Administration Dates Next Due HEP A VACCINE, ADULT 09/11/2016 Social History Tobacco Use Types Packs/Day Years Used Date Smoking Tobacco: Never Assessed Comments Unknown Sex and Gender Information Value Date Recorded Sex Assigned at Not on file Legal Sex Female 9:23 AM COMMUNITY SERVICES COORDINATOR Gender Identity Not on file Sexual Orientation [...] patient's age to complete this topic Insurance [employer] Care Teams Adzing And Boring Machine Operator Relationship Specialty Start Date End Date Unknown, Provider PCP - General 09/11/16
--- OUTSIDE RECORDS SUMMARY | 2025-07-05 11:07 | XMS_ITS | Encounter Summary ---
Author Organization [facility] Address [address] [place] [address] Care Team Providers Care Medical Grade Shoemaker Name Role Phone Unavailable Primary Care Provider Unavailabl e Encounter Details Date Type Department Care Team (Late st Contact Info) Description 11/11/1999 Outpatient Historical [facility] Pediatrics [address] [place] [address] Pedro Carias MD [address] [place] [address] Social History Tobacco Use Types Packs/Day Years Used Date Smoking Tobacco: Never Assessed Comments Unknown Sex and Gender Information Value Date Recorded Sex Assigned at Not on file Legal Sex Female 2:40 AM WAISTLINE JOINER LOCKSTITCH Gender Identity Not on file Sexual Orientation Not on file documented as of this encounter Plan of Treatment Not on file documented as of this encounter Visit Diagnoses Not on filedocumented in this encounter
--- OUTSIDE RECORDS SUMMARY | 2025-07-05 11:07 | XMS_ITS | Encounter Summary ---
Author Organization [facility] Address 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
--- OUTSIDE RECORDS SUMMARY | 2025-07-05 11:07 | XMS_ITS | Encounter Summary ---
Author Organization [facility] Address [address] [place] [address] Care Team Providers Care Skid Machine Operator Name Role Phone Unavailable Primary Care Provider Unavailabl e Encounter Details Date Type Department Care Team (Late st Contact Info) Description 10/21/2002 Outpatient Historical [facility] Pediatrics [address] [place] [address] Nilton Campbell MD [address] [place] [address] [address], [place] [address] Social History Tobacco Use Types Packs/Day Years Used Date Smoking Tobacco: Never Assessed Comments Unknown Sex and Gender Information Value Date Recorded Sex Assigned at Not on file 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
--- OUTSIDE RECORDS SUMMARY | 2025-07-05 11:07 | XMS_ITS | Encounter Summary ---
Author Organization [facility] Address [address] [place] [address] Care Team Providers Care Mortgage Specialist Name Role Phone Unavailable Primary Care Provider Unavailabl e Encounter Details Date Type Department Care Team (Late st Contact Info) Description 03/15/[address] [facility] Pediatrics [address] [place] [address] Connor Proctor MD [address] 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
--- OUTSIDE RECORDS SUMMARY | 2025-07-05 11:07 | XMS_ITS | Encounter Summary ---
Author Organization [facility] Address [address] [place] [address] Care Team Providers Care Glass Finisher Name Role Phone Unavailable Primary Care Provider Unavailabl e Encounter Details Date Type Department Care Team (Late st Contact Info) Description 06/24/2002 Outpatient Historical [facility] Pediatrics [address] [place] [address] Pedro Carias MD [address] [place] [address] Social History Tobacco Use Types Packs/Day Years Used Date Smoking Tobacco: Never Assessed Comments Unknown Sex and Gender Information Value Date Recorded Sex Assigned at Not on file 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
--- OUTSIDE RECORDS SUMMARY | 2025-07-05 11:07 | XMS_ITS | Encounter Summary ---
Author Organization [facility] Address 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
--- OUTSIDE RECORDS SUMMARY | 2025-07-05 11:07 | XMS_ITS | Encounter Summary ---
Author Organization [facility] Address [address] [place] [address] Care Team Providers Care Medical Center Representative Name Role Phone Unavailable Primary Care Provider Unavailabl e Encounter Details Date Type Department Care Team (Late st Contact Info) Description 11/29/2000 Outpatient Historical [facility] Pediatrics [address] [place] [address] Pedro Carias MD [address] [place] [address] Social History Tobacco Use Types Packs/Day Years Used Date Smoking Tobacco: Never Assessed Comments Unknown Sex and Gender Information Value Date Recorded Sex Assigned at Not on file 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
--- OUTSIDE RECORDS SUMMARY | 2025-07-05 11:07 | XMS_ITS | Encounter Summary ---
Author Organization [facility] Address [address] [place] [address] Care Team Providers Care Online Advertising Analyst Name Role Phone Unavailable Primary Care Provider Unavailabl e Encounter Details Date Type Department Care Team (Late st Contact Info) Description 11/05/1998 Outpatient Historical [facility] Pediatrics [address] [place] [address] Pedro Carias MD [address] [place] [address] Social History Tobacco Use Types Packs/Day Years Used Date Smoking Tobacco: Never Assessed Comments Unknown Sex and Gender Information Value Date Recorded Sex Assigned at Not on file Legal Sex Female 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
--- OUTSIDE RECORDS SUMMARY | 2025-07-05 11:07 | XMS_ITS | Encounter Summary ---
Author Organization [facility] Address 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
--- OUTSIDE RECORDS SUMMARY | 2025-07-05 11:07 | XMS_ITS | Encounter Summary ---
Author Organization [facility] Address [address] [place] [address] Care Team Providers Care Biotechnologist Name Role Phone Unavailable Primary Care Provider Unavailabl e Encounter Details Date Type Department Care Team (Late st Contact Info) Description 10/21/2002 Outpatient Historical [facility] Pediatrics [address] [place] [address] Nilton Campbell MD [address] [place] [address] [address], [place] [address] Social History Tobacco Use Types Packs/Day Years Used Date Smoking Tobacco: Never Assessed Comments Unknown Sex and Gender Information Value Date Recorded Sex Assigned at Not on file 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
--- OUTSIDE RECORDS SUMMARY | 2025-07-05 11:07 | XMS_ITS | Encounter Summary ---
Author Organization [facility] Address [address] [place] [address] Care Team Providers Care Collator Hand Name Role Phone Unavailable Primary Care Provider Unavailabl e Encounter Details Date Type Department Care Team (Late st Contact Info) Description 05/30/2001 Outpatient Historical [facility] Pediatrics [address] [place] [address] Pedro Carias MD [address] [place] [address] Social History Tobacco Use Types Packs/Day Years Used Date Smoking Tobacco: Never Assessed Comments Unknown Sex and Gender Information Value Date Recorded Sex Assigned at Not on file Legal Sex Female 2:40 AM ANODIZE MACHINE OPERATOR Gender Identity Not on file Sexual Orientation Not on file documented as of this encounter Plan of Treatment Not on file documented as of this encounter Visit Diagnoses Not on filedocumented in this encounter
--- OUTSIDE RECORDS SUMMARY | 2025-07-05 11:07 | XMS_ITS | Encounter Summary ---
Author Organization [facility] Address [address] [place] [address] Care Team Providers Care Community Support Specialist Name Role Phone Unavailable Primary Care Provider Unavailabl e Encounter Details Date Type Department Care Team (Late st Contact Info) Description 11/23/2001 Outpatient Historical [facility] Pediatrics [address] [place] [address] Connor Proctor MD [address] [facility] [address] [place] [address] Social History Tobacco Use Types Packs/Day Years Used Date Smoking Tobacco: Never Assessed Comments Unknown Sex and Gender Information Value Date Recorded Sex Assigned at Not on file Legal Sex Female 2:40 AM BELT LOOP CUTTER Gender Identity Not on file Sexual Orientation Not on file documented as of this encounter Plan of Treatment Not on file documented as of this encounter Visit Diagnoses Not on filedocumented in this encounter
--- OUTSIDE RECORDS SUMMARY | 2025-07-05 11:07 | XMS_ITS | Encounter Summary ---
Author Organization [facility] Address [address] [place] [address] Care Team Providers Care Utilities Ground Worker Name Role Phone Unavailable Primary Care Provider Unavailabl e Encounter Details Date Type Department Care Team (Late st Contact Info) Description 01/24/2003 Outpatient Historical [facility] Pediatrics [address] [place] [address] Nilton Campbell MD [address] [place] [address] [address], [place] [address] Social History Tobacco Use Types Packs/Day Years Used Date Smoking Tobacco: Never Assessed Comments Unknown Sex and Gender Information Value Date Recorded Sex Assigned at Not on file Legal Sex Female 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
[2025-07-05 11:25] LABS: Polychromasia Occasional
[2025-07-05 11:26] LABS: Anisocytosis 1+; Hypochromasia 1+; Ovalocytes 1+; Schistocytes None Seen; Target Cells Occasional
[2025-07-05 11:31] LABS: Alanine Aminotransferase 21 U/L (6-35); Albumin Level 4.2 g/dL (3.5-5.1); Alkaline Phosphatase 73 U/L (38-126); Anion Gap 9 mmol/L (4-12); Aspartate Amino Transferase 23 U/L (14-36); Bilirubin,Total 0.4 mg/dL (0.2-1.3); Blood Urea Nitrogen 12 mg/dL (7-17); Calcium 8.8 mg/dL (8.4-10.2); Carbon Dioxide 24 mmol/L (22-30); Chloride 102 mmol/L (98-107); Estimated CRCL calculation 106 ml/min; Estimated Glomerular Filt Rate > 60; Glucose 112 mg/dL (65-110); Potassium 3.8 mmol/L (3.4-5.0); Sodium 135 mmol/L (137-145); Total Protein 8.0 g/dL (6.3-8.2)
[2025-07-05 11:59] LABS: Non Pathogenic Casts 0-2
[2025-07-05 12:06] LABS: Troponin I < 0.012 ng/mL (0.000-0.034)
[2025-07-05 12:13] LABS: Add Urine Microscopic? YES; Appearance Urine Cloudy (Clear); Glucose Urine UA Negative (Negative); Leukocyte Esterase Ur Trace LEU/UL (Negative); Nitrate Urine Negative (Negative); Specific Grav Ur 1.016 (1.001-1.035)
[2025-07-05 12:24] LABS: Thyroid Stimulating Hormone 1.700 uIU/mL (0.465-4.680)
--- NOTE | 2025-07-05 13:16 | PC.NURSE ---
this RN went to medicate the pt. pt visitor was concerned with the pt high HR and being dehydrated and would like to speak to the ASSISTANT OPERATIONS MANAGER before taking the medication. pt confirmed these were also her wishes. MABEL Doshi will be notified
== END 2025-07-05 15:57 | disposition home or self-care (01) ==
PROVIDERS: Emergency Provider Nurse Practitioner Family; PCP Family Medicine
DX: R03.0 Elevated blood-pressure reading, without diagnosis of hypertension (principal)
CPT/HCPCS: 36415; 71046; 80053; 81001; 84443; 84484; 85025; 93005; 96374; 99284; A9270; J0360

== ENCOUNTER 2025-08-09 08:25 | Outpatient (CLI) | payer OTHER, SELFPAY ==
--- NOTE | ~2025-08-09 | US_ITS ---
Clinical history:Abnormal uterine and vaginal bleeding. LMP 07/11/2025 EXAM:Ultrasound pelvis complete with transvaginal TECHNIQUE:Multiple static grayscale images and color Doppler transabdominal and transvaginal images were obtained of the pelvis. Comparisons:None available FINDINGS: Uterus measures 10.0 x 5.4 x 5.9 cm. Endometrial stripe measures 5.8 mm. Uterus is slightly heterogeneous. Right ovary measures 3.5 x 2.3 x 1.9 cm with color Doppler flow. Left ovary measures 3.0 x 3.4 x 2.4 cm with color Doppler flow. IMPRESSION: 1. Unremarkable pelvic ultrasound. If symptoms persist or worsen, consider a short-term follow-up study or MRI imaging for further assessment. Reviewed, dictated and finalized at location Q. IMPRESSION: 1. Unremarkable pelvic ultrasound. If symptoms persist or worsen, consider a short-term follow-up study or MRI lianna ging for further assessment.
== END 2025-08-09 08:26 | disposition home or self-care (01) ==
LOC: MICIMG 08:26
PROVIDERS: PCP Nurse Practitioner Obstetrics & Gynecology; Visit Provider Nurse Practitioner Obstetrics & Gynecology
DX: N93.9 Abnormal uterine and vaginal bleeding, unspecified (principal)
CPT/HCPCS: 76830; 76856